=== PATIENT | male | born 1960 | race Caucasian/White ===

== ENCOUNTER 2019-01-15 06:59 | Day surgery (SDC) | payer OTHER ==
[2019-01-15] VITALS (9 sets, daily range): BP systolic 99–133; BP diastolic 50–73; PULSE 66–99; RESP 16–29; Ht 167.6 cm; Wt 74.9 kg
[~2019-01-15] VITALS: Ht 167.6 cm; Wt 74.9 kg
[2019-01-15] MEDS ORDERED: NO MEDS (08:13)
--- NOTE | 2019-01-15 09:32 | PREAC ---
Date/Time of Note Date/Time of Note DATE: 01/15/19 TIME: 09:31 Anesthesia Eval and Record Evaluation Time Pre-Procedure Interview DATE: 01/15/19 TIME: 09:31 Age 58 Sex male NPO: 8 hrs Preoperative diagnosis abdominal pain, change in bowel habits Planned procedure EGD, colonoscopy Past Medical History Past Medical History: Includes Renal: Other (prostate cancer) Surgery & Anesthesia Issues No known issue Meds Anticoagulation: No Beta Antonino within 24 hr: No Reason Beta Antonino not given: Pt. not on B-Antonino Reported Medications [No Meds] No Conflict Check 01/15/19 Meds reviewed: Yes Allergies Coded Allergies: No Known Allergy (Unverified , 01/15/19) Allergies Reviewed: Yes Labs/Studies Labs Reviewed: Reviewed by anesthesiologist test: N/A Pre-procedure Exam Airway: Adequate mouth opening, Adequate thyromental dist Mallampati: Mallampati II Teeth: Normal Lung: Normal Heart: Normal ASA Physical Status ASA physical status: 2 Emergency: None Planned Anesthetic General/MAC: Mask Planned Pain Management Parenteral pain med Pre-operative Attestations Prior to commencing anesthesia and surgery, the patient was re-evaluated, there was verification of: *The patient's identity *The results of appropriate recent lab work and preoperative vital signs *The above evaluation not changing prior to induction *Anesthetic plan, risk benefits, alternative and complications discussed with patient/family; questions answered; patient/family understands, accepts and wishes to proceed. YI YUEN MD Jan 15, 2019 09:32
[2019-01-15] MEDS ORDERED: PROPOFOL 60 ML ONE (09:35)
[2019-01-15] MEDS ORDERED: LIDOCAINE 2% (SDV) 5 ML INJ ONE (09:35)
[2019-01-15] MEDS ORDERED: ONDANSETRON 4 MG INJ IV PRN (10:00)
--- NOTE | 2019-01-15 10:21 | PAC ---
Date/Time of Note Date/Time of Note DATE: 01/15/19 TIME: 10:19 Post-Anesthesia Notes Post-Anesthesia Note Activity: WNL Respiratory function: WNL Cardiovascular function: WNL Mental status: Baseline Pain reasonably controlled: Yes Hydration appropriate: Yes Nausea/Vomiting absent: Yes Comments BP: 98/58 HR: 81 RR: 15 T: 97.9 SaO2: 100% YI YUEN MD Jan 15, 2019 10:21
== END 2019-01-15 11:23 | disposition home or self-care (01) ==
LOC: GIL 06:59
PROVIDERS: ATTEND Internal Medicine Gastroenterology
DX: Z12.11 Encounter for screening for malignant neoplasm of colon (principal); K64.8 Other hemorrhoids; D12.5 Benign neoplasm of sigmoid colon; K29.60 Other gastritis without bleeding
CPT/HCPCS: 88305; 88313